=== PATIENT | male | born 1950 | race American Indian/Alaskan Native ===

== ENCOUNTER 2018-03-25 12:07 | Inpatient (IN) | payer MEDICARE ==
[2018-03-25] MEDS ORDERED: ANCEF/STERILE WATER 2 GM/20 ML 2 GM/20 ML SYRINGE IV ONE (17:23)
[2018-03-25] MEDS ORDERED: HEPARIN/NS 5000 UNIT/500ML(CATH LAB) 500 ML IR ONE (17:23)
[2018-03-25] MEDS ORDERED: XYLOCAINE 2% INFILTRATI ONE ×2 (17:23→18:01)
[2018-03-25] MEDS ORDERED: HEPARIN 10,000 UNITS/10 ML ONE (17:23)
--- NOTE | 2018-03-25 17:27 | Short Stay Summary ---
Short Stay Documentation Date of service: 03/25/18 Narrative H&P: 67 year old male with ESRD and thrombosed left AVG s/p attempt at an access center where they failed at thrombosed and also failed to place a method of dialysis for the patient. He presented to [facility] and was set up for permcath placement, but K 6.8 and patient will need to be admitted. - History Principal diagnosis: AVG malfunction, Hyperkalemia Past Medical History: dialysis Past Surgical History: Other (AV access creation) - Allergies and Medications Current Medications: Allergies No Known Allergies Allergy (Unverified 03/25/18 12:08) Home Medications Medication Instructions Recorded Confirmed Last Taken Type Aspirin EC [Aspirin Enteric Coated 81 mg PO DAILY 03/25/18 03/25/18 03/24/18 History TAB] 81mg Calcium Carbonate [Tums] 200 mg PO PRN 03/25/18 03/25/18 03/24/18 History - Physical exam General appearance: no acute distress Lungs: Normal air movement - Brief post op/procedure progress note Date of procedure: 03/25/18 Pre-op diagnosis: ESRD with AVG malfunction Post-op diagnosis: same Procedure: Permcath placement Anesthesia: local (w/ conscious sedation) Surgeon: ROSE DENIS Estimated blood loss: minimal Condition: stable - Hospital course Hospital course: K 6.8. Will need dialysis. PC placed for dialysis. Contacted Dr. Schaefer since patient's pharmacy operations manager is Dr. Ching and does not come to [facility]. Will need to have dialysis due to hyperkalemia. Ordered vein mapping. FU as outpatient. - Disposition Condition at discharge: Stable Disposition: [id number]-TRM GEN HOSP IP - Discharge Diagnoses (1) Thrombosis of arteriovenous graft Status: Acute (2) ESRD (end stage renal disease) on dialysis Status: Acute (3) Hyperkalemia Status: Acute Short Stay Discharge Plan Follow up with: PETROS OLIVA MD [Primary Care Provider] - 7 Days
[2018-03-25] MEDS ORDERED: NACL 0.9% 500 ML 500 ML ONE (17:40)
--- NOTE | 2018-03-25 17:46 | Operative Report ---
Operative Report Operative Report: EXAM: 1. Ultrasound-guided puncture of the right internal jugular vein 2. Fluoroscopic-guided placement of a right internal jugular tunneled cuffed hemodialysis catheter. DATE: 03/25/18 INDICATION: End-stage renal disease with thrombosed AV graft status post attempt at outside access Center which was unsuccessful and no catheter was placed. Patient was not provided a dialysis access. Patient was then sent for evaluation with nonsalvagable access and hyperkalemia and needs dialysis access. MEDICATIONS: Please see nursing report for full details. DEVICES: 23 cm tip to cuff 15 Fr dual lumen hemodialysis catheter PLATE PAINTER: ROSE DENIS MD CONTRAST: None PROCEDURE: The risks, benefits, and alternatives were discussed and informed consent was obtained. The patient was transported to the angiography suite in satisfactory/stable condition and was transported onto the angiography table. The patient's right internal jugular vein was assessed with ultrasound and determined to be patent prior to procedure. The patient was prepped and draped in a sterile fashion. The puncture site was anesthetized. Under sonographic guidance, the right internal jugular vein was punctured with a 21-gauge micropuncture needle and a 0.018 inch wire was advanced into the inferior vena cava. The micropuncture needle was exchanged for a transitional dilator and the wire was retracted into the right atrium to nichelle intravascular distance. The wire and inner dilator were removed. 0.035 inch wire was advanced through the transitional dilator into the inferior vena cava. A suitable exit site was identified on the patient's chest inferior and lateral to the venotomy. The site was anesthetized with local anesthetic and the track was anesthetized. Dermatotomy was made. The PermCath was attached to the tunneling device and tunneled between the dermatotomy to the venotomy. Over the 0.035 inch wire, serial dilatation was performed with ultimate placement of a peel-away sheath. The catheter was advanced through the peel- away sheath after the wire was removed and positioned centrally under fluorosco pic guidance. The peel-away sheath was removed. 3-0 Vicryl suture was used to close the venotomy and Dermabond was then applied. 2-0 Ethilon suture was used to secure the catheter at the dermatotomy. The catheter was charged with heparin 1000 units/mL space. Biopatch and sterile dressing applied. The patient was transferred from the angiography suite back to the floor in stable condition. FINDINGS: 1. Excellent flow was obtained through the dialysis catheter with 20 mL syringes. 2. The catheter tip is in the right atrium. IMPRESSION: 1. Successful ultrasound and fluoroscopically guided placement of a right internal jugular tunneled cuffed hemodialysis catheter.
[2018-03-25] MEDS: SUBLIMAZE ONE ×2 (17:54→18:00)
[2018-03-25] MEDS: VERSED ONE ×2 (17:54→18:00)
[2018-03-25] MEDS ORDERED: ZOFRAN ONE (18:34)
[2018-03-25] MEDS ORDERED: DILAUDID IV PRN (18:40)
[2018-03-25] MEDS ORDERED: MORPHINE IV PRN (18:40)
[2018-03-25] MEDS ORDERED: TYLENOL PO PRN (18:40)
[2018-03-25] MEDS ORDERED: SODIUM CHLORIDE FLUSH SYRINGE 10 ML IV PRN (18:40)
[2018-03-25] MEDS ORDERED: ZOFRAN IV PRN (18:40)
[2018-03-25] MEDS ORDERED: CALCIUM GLUCONATE 2,000 MG in NACL 0.9% 100 ML IV ONE (19:00)
[2018-03-25] MEDS ORDERED: DDAVP 20 MCG in NACL 0.9% 50 ML IV ONE (19:00)
[2018-03-25] MEDS ORDERED: KIONEX PO ONE (21:00)
[2018-03-25 21:25] LABS: Basophils # (Auto) 0.1 K/mm3 (0.0-0.1); Basophils % (Auto) 0.7 % (0.0-1.8); Eosinophils # (Auto) 0.1 K/mm3 (0.0-0.4); Hematocrit 37.2 % (35.5-45.6); Hemoglobin 12.4 gm/dl (11.8-15.2); Lymphocytes % (Auto) 8.1 % (13.4-35.0); Mean Corpuscular HGB Conc 33 % (32-34); Mean Corpuscular Volume 99 fl (84-94); Monocytes # (Auto) 0.7 K/mm3 (0.0-0.8); Monocytes % (Auto) 5.7 % (0.0-7.3); Platelet Count 215 K/mm3 (140-440); Red Blood Count 3.78 M/mm3 (3.65-5.03)
[2018-03-25 21:40] LABS: Calcium 8.1 mg/dL (8.4-10.2)
[2018-03-25 21:49] LABS: Hepatitis B Surface Antigen Non-Reactive (Negative); Hepatitis C Virus Antibody Non-Reactive (NonReactive)
[2018-03-25] MEDS ORDERED: NACL 0.9 (PRIMING MACHINE ONLY DIALYSIS) MC ONE (23:35)
[2018-03-25] MEDS: HEPARIN SUB-Q SCH (23:51)
[2018-03-25] MEDS: PEPCID PO SCH (23:51)
[2018-03-25] MEDS: SODIUM CHLORIDE FLUSH SYRINGE 10 ML IV SCH (23:51)
[2018-03-26 05:56] LABS: Basophils # (Auto) 0.2 K/mm3 (0.0-0.1); Basophils % (Auto) 2.3 % (0.0-1.8); Eosinophils # (Auto) 0.2 K/mm3 (0.0-0.4); Eosinophils % (Auto) 1.8 % (0.0-4.3); Hematocrit 31.5 % (35.5-45.6); Hemoglobin 10.7 gm/dl (11.8-15.2); Lymphocytes # (Auto) 1.4 K/mm3 (1.2-5.4); Lymphocytes % (Auto) 16.8 % (13.4-35.0); Mean Corpuscular HGB Conc 34 % (32-34); Mean Corpuscular Volume 97 fl (84-94); Monocytes # (Auto) 0.8 K/mm3 (0.0-0.8); Platelet Count 196 K/mm3 (140-440); Red Blood Count 3.26 M/mm3 (3.65-5.03); Red Cell Distribution Width 15.4 % (13.2-15.2)
[2018-03-26 07:21] LABS: Albumin 3.8 g/dL (3.9-5); BUN/Creatinine Ratio 4; Blood Urea Nitrogen 29 mg/dL (9-20); Calcium 8.1 mg/dL (8.4-10.2); Hemolysis Index 9
--- NOTE | 2018-03-26 07:31 | Event Note ---
Date: 03/25/18 See H/p in reports ESRD on HD Hyperkalemia s/p Flores
[2018-03-26 07:34] LABS: Alanine Aminotransferase < 5 units/L (7-56)
--- NOTE | 2018-03-26 09:23 | History and Physical Report ---
CHIEF COMPLAINT: No hemodialysis access. HISTORY OF PRESENT ILLNESS: The patient is being admitted for high potassium levels. The patient was sent for Vas-Cath placement. The patient has a thrombosed AV graft and could not be corrected in outpatient surgery. The patient was sent here without a Vas-Cath, for placement of a Vas-Cath and correction of the AV graft, if possible. No dialysis done today. Some shortness of breath is present. PAST MEDICAL HISTORY: Past medical history is significant for end-stage renal disease with AV malfunction and possible hypertension. PAST SURGICAL HISTORY: AV graft placement. SOCIAL HISTORY: He does not smoke. No alcohol, no recreational drugs. FAMILY HISTORY: Family history is significant for hypertension. REVIEW OF SYSTEMS: Review of systems is significant for slight shortness of breath present. No chest pain. Otherwise, review of systems is negative. PHYSICAL EXAMINATION: GENERAL: On examination, elderly male, cooperative during the examination. VITAL SIGNS: Blood pressure 154/81, temperature is 97.6, pulse 66, respirations are 12. HEENT: Unremarkable. Pupils are equal and reactive. NECK: Supple, no lymphadenopathy, no thyromegaly. LUNGS: Clear to auscultation and percussion. Good air entry. CARDIOVASCULAR: S1, S2 heard. No gallop, no murmur, no rub. Apical impulse in left fifth intercostal space and midclavicular line. ABDOMEN: Soft and benign. No hepatosplenomegaly. No guarding, no rigidity. Hernial orifices are normal. EXTREMITIES: Good pedal pulses. No pedal edema. CENTRAL NERVOUS SYSTEM: Alert and oriented x 4, nonfocal examination. SKIN: Normal. LABORATORY DATA: Potassium is 6.8, hemoglobin 11.8, BUN and creatinine is 12.4 and 37.4, platelet count is 215,000. Sodium is 138, potassium is 4.2, chloride is 94, bicarbonate is 26, BUN and creatinine 35 and 7.0. Glucose is 152, calcium is 8.1. Hepatitis profile is nonreactive. ASSESSMENT AND PLAN: 1. Status post Vas-Cath placement. The patient can be taken for dialysis. 2. Hyperkalemia. Calcium gluconate and Kayexalate given. Hemodialysis should be corrected further. 3. Hypertension. The patient's blood pressures may be slightly elevated at times, may not need any antihypertensives. 4. Deep venous thrombosis prophylaxis. Heparin 5000 q. 12 hours. JOB# [id number] SHERLY/JOHN
[2018-03-26] MEDS: SODIUM CHLORIDE FLUSH SYRINGE 10 ML IV SCH (10:16)
[2018-03-26] MEDS: PEPCID PO SCH (10:16)
[2018-03-26] MEDS: HEPARIN SUB-Q SCH (10:17)
[2018-03-26] MEDS ORDERED: NACL 0.9% 100 ML IV PRN (11:42)
--- NOTE | 2018-03-26 12:38 | Discharge Summary ---
Providers - Providers Date of Admission: 03/25/18 18:40 Date of discharge: 03/26/18 Attending physician: TATO MARTIN 03/25/18 18:43 Consult to Physician [CONS] Routine Comment: SPOKE WITH DR KENT Consulting Provider: GILBERT CORTEZ Physician Instructions: Reason For Exam: ESRd 03/25/18 18:46 Consult to Physician [CONS] Routine Comment: Consulting Provider: GILBERT CORTEZ Physician Instructions: Reason For Exam: HYPERKALEMIA 6.8 Primary care physician: PETROS OLIVA MD Hospitalization Condition: Stable Hospital course: Pateint has malfunctioning AVG,Had Vas cath inserted yesterday.He sees Dr Juan Arteaga in [place] for ESRD.Patient recieving HD today.Had Hyperkalemia which was corrected.Patient to be discharged after HD. Disposition: - TO HOME OR SELFCARE - Discharge Diagnoses (1) ESRD (end stage renal disease) on dialysis Status: Acute Comment: Cont HD TTS schedule (2) Hyperkalemia Status: Acute Comment: Corrected (3) Thrombosis of arteriovenous graft Status: Acute Qualifiers: Encounter type: initial encounter Qualified Code(s): T82.868A - Thrombosis due to vascular prosthetic devices, implants and grafts, initial encounter Comment: To correct as outpatient Core Measure Documentation - Palliative Care Palliative Care/ Comfort Measures: Not Applicable - Core Measures Any of the following diagnoses?: none Exam - Constitutional Vitals: Temp Pulse Resp BP Pulse Ox 97.9 F 66 20 151/73 98 03/26/18 11:07 03/26/18 11:07 03/26/18 11:07 03/26/18 11:07 03/26/18 11:07 General appearance: Present: no acute distress, well-nourished - EENT Eyes: Present: PERRL ENT: hearing intact, clear oral mucosa - Neck Neck: Present: supple, normal ROM - Respiratory Respiratory effort: normal Respiratory: bilateral: CTA - Cardiovascular Heart rate: 78 Rhythm: regular Heart Sounds: Present: S1 & S2. Absent: rub, click - Extremities Extremities: pulses symmetrical, No edema Peripheral Pulses: within normal limits - Abdominal General gastrointestinal: Present: soft, non-tender, non-distended, normal bowel sounds Male genitourinary: Present: normal - Rectal Rectal Exam: deferred - Integumentary Integumentary: Present: clear, warm, dry - Musculoskeletal Musculoskeletal: gait normal, strength equal bilaterally - Psychiatric Psychiatric: appropriate mood/affect, intact judgment & insight - Neurologic Neurologic: CNII-XII intact, moves all extremities - Allied Health Allied health notes reviewed: nursing, case management Plan Activity: no restrictions Diet: renal Follow up with: PETROS OLIVA MD [Primary Care Provider] - 7 Days
--- NOTE | 2018-03-26 13:17 | Consultation ---
History of Present Illness - Reason for Consult Consult date: 03/26/18 end stage renal disease, hyperkalemia Requesting physician: TATO MARTIN - History of Present Illness This is a 67 y/o male with PMH of ESRD on HD and anemia who presented to [facility] yesterday with malfunctioning left AVG and inability to undergo outpatient HD. Dr Bustamante (IR - vascular surgery) consulted, pt with thrombosed AV graft s/p unsuccessful attempt at outside access center. Dr Bustamante placed Right IJ Perm Catheter and had HD treatment last night. We were consulted to evaluate this pt who has ESRD. This pt is followed by Dr Chandler Martinez (Mainframe Programmer Analyst). Pt states he undergoes outpatient every TTS. Past History Past Medical History: dialysis, ESRD, hypertension Past Surgical History: Other (AV access creation) Medications and Allergies Allergies Allergy/AdvReac Type Severity Reaction Status Date / Time No Known Allergies Allergy Unverified 03/25/18 12:08 Home Medications Medication Instructions Recorded Confirmed Last Taken Type Aspirin EC [Aspirin Enteric Coated 81 mg PO DAILY 03/25/18 03/25/18 03/24/18 History TAB] 81mg Calcium Carbonate [Tums] 200 mg PO PRN 03/25/18 03/25/18 03/24/18 History Active Meds: Active Medications Acetaminophen (Tylenol) 650 mg PO Q4H PRN PRN Reason: Pain MILD(1-3)/Fever >100.5/MONACO Famotidine (Pepcid) 10 mg PO BID [facility] Last Admin: 03/26/18 10:16 Dose: 10 mg Documented by: Heparin Sodium (Porcine) (Heparin) 5,000 unit SUB-Q Q12HR [facility] Last Admin: 03/26/18 10:17 Dose: 5,000 unit Documented by: Hydromorphone HCl (Dilaudid) 0.5 mg IV Q3H PRN PRN Reason: Pain , Severe (7-10) Sodium Chloride (Nacl 0.9%) 100 mls @ 999 mls/hr IV CHANDAN PRN PRN Reason: Hypotension Morphine Sulfate (Morphine) 2 mg IV Q4H PRN PRN Reason: Pain, Moderate (4-6) Ondansetron HCl (Zofran) 4 mg IV Q8H PRN PRN Reason: Nausea And Vomiting Sodium Chloride (Sodium Chloride Flush Syringe 10 Ml) 10 ml IV BID [facility] Last Admin: 03/26/18 10:16 Dose: 10 ml Documented by: Sodium Chloride (Sodium Chloride Flush Syringe 10 Ml) 10 ml IV PRN PRN PRN Reason: LINE FLUSH Review of Systems Constitutional: fatigue Cardiovascular: no chest pain, no shortness of breath, no dyspnea on exertion Respiratory: no shortness of breath, no dyspnea on exertion Gastrointestinal: nausea, no abdominal pain, no vomiting, no diarrhea, no constipation, no hematemesis Genitourinary Male: no dysuria, no hematuria Integumentary: no wounds Neurological: no weakness, no numbness, no tingling Psychiatric: no anxiety, no depression Exam - Vital Signs Vital signs: Vital Signs Temp Pulse Resp BP 97.8 F 57 L 20 183/79 03/25/18 14:11 03/25/18 14:11 03/25/18 14:11 03/25/18 14:11 - General Appearance General appearance: well-developed EENT: ATNC Neck: Present: neck supple Respiratory: Decreased Breath Sounds Heart: regular, S1S2, other (ACCESS: Right IJ Perm Catheter; left AVG - no thrill or bruit noted) Gastrointestinal: Present: normoactive bowel sounds. Absent: tenderness Integumentary: warm and dry Neurologic: alert and oriented x3 Musculoskeletal: Present: other (no edema to BLE) Psychiatric: cooperative Results - Lab Results 03/26/18 05:08 03/26/18 05:08 Most recent lab results Calcium 8.1 mg/dL (8.4-10.2) L 03/26/18 05:08 Assessment and Plan Malfunctioning Left AVG: - Dr Bustamante consulted, s/p Right IJ Perm Catheter placement - Pt will need vascular surgery evaluation upon discharge for custodial access management ESRD on HD: - S/p HD last night for UF and clearance, UF removed 2 liters - Additional HD treatment today for gentle UF and clearance - Assess need for HD on daily basis - Ok for pt to be d/c home today from nephrology standpoint after HD if medically cleared. Pt will need to follow up with his staff physical therapist Dr Martinez and outpatient dialysis center as scheduled (TTS) - Renally dose meds - Renal plan d/w Dr Mishra Hyperkalemia: - Secondary to inability to undergo HD due to malfunctioning AVG - Improved with HD - HD again today - Low potassium diet Anemia: - Epogen dosing as needed
[2018-03-26 17:01] VITALS: BP 118/54
== END 2018-03-26 17:18 | disposition home or self-care (01) | DRG 286 ==
LOC: CATHLABREC 12:07 → 4A 18:40
PROVIDERS: ADMIT Internal Medicine; ATTEND Internal Medicine
PROC: 0JH63XZ Insertion of Tunneled Vascular Access Device into Chest Subcutaneous Tissue and Fascia, Percutaneous Approach (ICD-10-PCS; principal; 2018-03-25)
PROC: B2141ZZ Fluoroscopy of Right Heart using Low Osmolar Contrast (ICD-10-PCS; 2018-03-25)
PROC: 02H633Z Insertion of Infusion Device into Right Atrium, Percutaneous Approach (ICD-10-PCS; 2018-03-25)
PROC: B244ZZZ Ultrasonography of Right Heart (ICD-10-PCS; 2018-03-25)
PROC: 5A1D70Z Performance of Urinary Filtration, Intermittent, Less than 6 Hours Per Day (ICD-10-PCS; 2018-03-25)
PROC: 5A1D70Z Performance of Urinary Filtration, Intermittent, Less than 6 Hours Per Day (ICD-10-PCS; 2018-03-26)
DX: T82.868A Thrombosis due to vascular prosthetic devices, implants and grafts, initial encounter (principal); N18.6 End stage renal disease; I12.0 Hypertensive chronic kidney disease with stage 5 chronic kidney disease or end stage renal disease; D64.9 Anemia, unspecified; E87.5 Hyperkalemia; Y83.2 Surgical operation with anastomosis, bypass or graft as the cause of abnormal reaction of the patient, or of later complication, without mention of misadventure at the time of the procedure; Z99.2 Dependence on renal dialysis; Z79.899 Other long term (current) drug therapy; Z79.82 Long term (current) use of aspirin; Y92.098 Other place in other non-institutional residence as the place of occurrence of the external cause
CPT/HCPCS: 36415; 36558; 77001; 80048; 80053; 80074; 84132; 85025; 96365; G0378; C1750; C1769; J0610; J0690; J1644; J2250; J2405; J2597; J3010; J7030; J7040

== ENCOUNTER 2018-04-29 08:00 | Inpatient (IN) | payer MEDICARE ==
[~2018-04-29 08:00] MED LIST: ANCEF/STERILE WATER 2 GM/20 ML 2 GM/20 ML SYRINGE IV NR
[2018-04-29] MEDS: NACL 0.9% 1000 ML 1,000 ML IV SCH (08:40)
[2018-04-29] MEDS ORDERED: ZOFRAN ONE (10:05)
[2018-04-29] MEDS ORDERED: XYLOCAINE CARDIAC IV ONE (10:05)
[2018-04-29] MEDS ORDERED: SUBLIMAZE ONE (10:05)
[2018-04-29] MEDS ORDERED: DIPRIVAN 10 MG/ML IV ONE (10:05)
[2018-04-29] MEDS ORDERED: GELFOAM TP ONE (10:18)
[2018-04-29] MEDS ORDERED: MARCAINE-EPI 0.5%-1:200,000 INFILTRATI ONE (10:18)
[2018-04-29] MEDS ORDERED: NACL 0.9% 250ML 0 ML ONE (10:18)
[2018-04-29] MEDS ORDERED: HEPARIN 10,000 UNITS/10 ML ONE (10:18)
[2018-04-29] MEDS ORDERED: THROMBIN (BOVINE) TP ONE (10:19)
[2018-04-29] MEDS ORDERED: NITROGLYCERIN SYRINGE 0 ML ONE (10:19)
[2018-04-29 14:28] LABS: Basophils # (Auto) 0.2 K/mm3 (0.0-0.1); Basophils % (Auto) 1.7 % (0.0-1.8); Eosinophils # (Auto) 0.3 K/mm3 (0.0-0.4); Eosinophils % (Auto) 2.9 % (0.0-4.3); Hematocrit 37.9 % (35.5-45.6); Hemoglobin 12.6 gm/dl (11.8-15.2); Lymphocytes # (Auto) 2.1 K/mm3 (1.2-5.4); Mean Corpuscular HGB Conc 33 % (32-34); Mean Corpuscular Volume 98 fl (84-94); Monocytes # (Auto) 0.7 K/mm3 (0.0-0.8); Monocytes % (Auto) 7.2 % (0.0-7.3); Platelet Count 212 K/mm3 (140-440); Red Blood Count 3.88 M/mm3 (3.65-5.03); Red Cell Distribution Width 15.5 % (13.2-15.2)
[2018-04-29 15:05] LABS: Albumin 4.6 g/dL (3.9-5); Calcium 8.4 mg/dL (8.4-10.2)
[2018-04-29] MEDS ORDERED: TYLENOL PO PRN (15:39)
[2018-04-29] MEDS ORDERED: SODIUM CHLORIDE FLUSH SYRINGE 10 ML IV PRN (15:39)
[2018-04-29] MEDS ORDERED: ZOFRAN IV PRN (15:39)
[2018-04-29] MEDS ORDERED: CALCIUM GLUCONATE 2,000 MG in NACL 0.9% 100 ML IV ONE (15:41)
[2018-04-29] MEDS ORDERED: KIONEX PO ONE (15:41)
[2018-04-29] MEDS ORDERED: NACL 0.9% 100 ML IV PRN (15:41)
--- NOTE | 2018-04-29 15:46 | History and Physical Report ---
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) Family history: hypertension Medications and Allergies Allergies Allergy/AdvReac Type Severity Reaction Status Date / Time No Known Allergies Allergy Unverified 04/27/18 18:09 Home Medications Medication Instructions Recorded Confirmed Last Taken Type No Known Home Medications [No 04/27/18 04/27/18 Unknown History Reported Home Medications] Active Meds: Active Medications Acetaminophen (Tylenol) 650 mg PO Q4H PRN PRN Reason: Pain MILD(1-3)/Fever >100.5/MONACO Albuterol (Proventil) 2.5 mg IH TIDRT LIS Stop: 04/30/18 19:59 Dextrose (D50w (25gm) Syringe) 25 ml IV Q6H LIS Stop: 04/29/18 22:01 Cefazolin Sodium (Ancef/Sterile Water 2 Gm/20 Ml) 2 gm in 20 mls @ 80 mls/hr IV PREOP NR; Protocol Stop: 04/29/18 23:59 Sodium Chloride (Nacl 0.9% 1000 Ml) 1,000 mls @ 42 mls/hr IV DIRECT LIS Last Admin: 04/29/18 08:40 Dose: 42 mls/hr Documented by: Sodium Chloride (Nacl 0.9%) 100 mls @ 999 mls/hr IV CHANDAN PRN PRN Reason: Hypotension Calcium Gluconate 2,000 mg/ (Sodium Chloride) 120 mls @ 660 mls/hr IV ONCE ONE Stop: 04/29/18 15:51 Insulin Human Regular (Humulin R) 5 units SUB-Q Q6H LIS Stop: 04/29/18 22:01 Ondansetron HCl (Zofran) 4 mg IV Q8H PRN PRN Reason: Nausea And Vomiting Sodium Chloride (Sodium Chloride Flush Syringe 10 Ml) 10 ml IV BID LIS Sodium Chloride (Sodium Chloride Flush Syringe 10 Ml) 10 ml IV PRN PRN PRN Reason: LINE FLUSH Sodium Polystyrene Sulfonate (Kionex) 30 gm PO ONCE ONE Stop: 04/29/18 15:42 Review of Systems All systems: negative Constitutional: no fatigue Ears, nose, mouth and throat: no ear pain Cardiovascular: no chest pain Respiratory: no cough Gastrointestinal: no abdominal pain Genitourinary Male: no dysuria Rectal: no pain Musculoskeletal: no neck stiffness Integumentary: no rash Neurological: no head injury Psychiatric: no anxiety Endocrine: no cold intolerance Hematologic/Lymphatic: no easy bruising Allergic/Immunologic: no urticaria Exam - Constitutional Vitals: Temp Pulse Resp BP Pulse Ox 98.2 F 61 20 150/66 97 04/29/18 12:48 04/29/18 12:48 04/29/18 12:48 04/29/18 12:48 04/29/18 12:48 General appearance: Present: no acute distress, well-nourished - EENT Eyes: Present: PERRL ENT: hearing intact, clear oral mucosa - Neck Neck: Present: supple, normal ROM - Respiratory Respiratory effort: normal Respiratory: bilateral: CTA - Cardiovascular Heart Sounds: Present: S1 & S2. Absent: rub, click - Extremities Extremities: pulses symmetrical, No edema Peripheral Pulses: within normal limits - Abdominal General gastrointestinal: Present: soft, non-tender, non-distended, normal bowel sounds Male genitourinary: Present: normal - Integumentary Integumentary: Present: clear, warm, dry - Musculoskeletal Musculoskeletal: gait normal, strength equal bilaterally - Psychiatric Psychiatric: appropriate mood/affect, intact judgment & insight - Neurologic Neurologic: CNII-XII intact, moves all extremities Results - Labs CBC & Chem 7: 04/29/18 14:05 05/02/18 03:32 Labs: Laboratory Last Values WBC 9.7 K/mm3 (4.5-11.0) 04/29/18 14:05 RBC 3.88 M/mm3 (3.65-5.03) 04/29/18 14:05 Hgb 12.6 gm/dl (11.8-15.2) 04/29/18 14:05 POC Hgb 11.2 (12-17) L 04/29/18 10:04 Hct 37.9 % (35.5-45.6) 04/29/18 14:05 POC Hct 33 (38-51) L 04/29/18 10:04 MCV 98 fl (84-94) H 04/29/18 14:05 MCH 33 pg (28-32) H 04/29/18 14:05 MCHC 33 % (32-34) 04/29/18 14:05 RDW 15.5 % (13.2-15.2) H 04/29/18 14:05 Plt Count 212 K/mm3 (140-440) 04/29/18 14:05 Lymph % (Auto) 22.0 % (13.4-35.0) 04/29/18 14:05 Lares % (Auto) 7.2 % (0.0-7.3) 04/29/18 14:05 Eos % (Auto) 2.9 % (0.0-4.3) 04/29/18 14:05 Baso % (Auto) 1.7 % (0.0-1.8) 04/29/18 14:05 Lymph # 2.1 K/mm3 (1.2-5.4) 04/29/18 14:05 Lares # 0.7 K/mm3 (0.0-0.8) 04/29/18 14:05 Eos # 0.3 K/mm3 (0.0-0.4) 04/29/18 14:05 Baso # 0.2 K/mm3 (0.0-0.1) H 04/29/18 14:05 Seg Neutrophils % 66.2 % (40.0-70.0) 04/29/18 14:05 Seg Neutrophils # 6.4 K/mm3 (1.8-7.7) 04/29/18 14:05 POC Sodium 137 mmol/L (138-146) L 04/29/18 10:04 POC Potassium 6.0 (3.5-4.9) H 04/29/18 10:04 POC Chloride 102 (98-109) 04/29/18 10:04 Sodium 139 mmol/L (137-145) 04/29/18 14:05 Potassium 6.2 mmol/L (3.6-5.0) H* 04/29/18 14:05 Chloride 95.1 mmol/L (98-107) L 04/29/18 14:05 Carbon Dioxide 24 mmol/L (22-30) 04/29/18 14:05 Anion Gap 26 mmol/L 04/29/18 14:05 POC BUN 48 mg/dl (8-26) H 04/29/18 10:04 BUN 52 mg/dL (9-20) H 04/29/18 14:05 Creatinine 9.3 mg/dL (0.8-1.5) H 04/29/18 14:05 Estimated GFR 7 ml/min 04/29/18 14:05 BUN/Creatinine Ratio 6 % 04/29/18 14:05 Glucose 85 mg/dL (75-100) 04/29/18 14:05 POC Glucose 96 (70-105) 04/29/18 10:04 Calcium 8.4 mg/dL (8.4-10.2) 04/29/18 14:05 Total Bilirubin 0.30 mg/dL (0.1-1.2) 04/29/18 14:05 AST 12 units/L (5-40) 04/29/18 14:05 ALT 10 units/L (7-56) 04/29/18 14:05 Alkaline Phosphatase 67 units/L (35-129) 04/29/18 14:05 Total Protein 7.2 g/dL (6.3-8.2) 04/29/18 14:05 Albumin 4.6 g/dL (3.9-5) 04/29/18 14:05 Albumin/Globulin Ratio 1.8 % 04/29/18 14:05 TSH 1.810 mlU/mL (0.270-4.200) 04/29/18 14:05 Assessment and Plan Assessment and plan: 67M with pmh of ESRD who was in outpatient preop for declotting of avg, he was found to have elevated K prompting admission to hospital Diagnosis AVG malfunction hyperkalemia ESRD -vasc sx consult to declot avg -medically rx hyperkalemia in meantime -renal consult for continued HD Dvt ppx; chemical VTE prophylaxis?: Chemical
[2018-04-29] MEDS ORDERED: HumuLIN R SUB-Q SCH (16:00)
[2018-04-29] MEDS ORDERED: D50W (25GM) Syringe IV SCH (16:00)
--- NOTE | 2018-04-29 16:31 | Event Note ---
Date: 04/29/18 Patient was here today for an elective placement of a left arm AV graft. The procedure was canceled because of hyperkalemia. Patient does not require surgery while an inpatient. He can be discharged after dialysis and follow up as an outpatient.
--- NOTE | 2018-04-29 18:43 | Consultation ---
History of Present Illness - Reason for Consult Consult date: 04/29/18 end stage renal disease, hyperkalemia Requesting physician: BRONSON BARNETT - History of Present Illness 67 year old with history of esrd admitted for hyperkalemia after planned vascular procedure Past History Past Medical History: anemia, dialysis, hypertension Past Surgical History: Other (dialysis access) Social history: full code. denies: IV drug use Family history: hypertension Medications and Allergies Allergies Allergy/AdvReac Type Severity Reaction Status Date / Time No Known Allergies Allergy Unverified 04/27/18 18:09 Home Medications Medication Instructions Recorded Confirmed Last Taken Type No Known Home Medications [No 04/27/18 04/27/18 Unknown History Reported Home Medications] Active Meds: Active Medications Acetaminophen (Tylenol) 650 mg PO Q4H PRN PRN Reason: Pain MILD(1-3)/Fever >100.5/MONACO Albuterol (Proventil) 2.5 mg IH TIDRT LIS Stop: 04/30/18 19:59 Heparin Sodium (Porcine) (Heparin) 5,000 unit SUB-Q Q8HR LIS Cefazolin Sodium (Ancef/Sterile Water 2 Gm/20 Ml) 2 gm in 20 mls @ 80 mls/hr IV PREOP NR; Protocol Stop: 04/29/18 23:59 Sodium Chloride (Nacl 0.9% 1000 Ml) 1,000 mls @ 42 mls/hr IV DIRECT LIS Last Admin: 04/29/18 08:40 Dose: 42 mls/hr Documented by: Sodium Chloride (Nacl 0.9%) 100 mls @ 999 mls/hr IV CHANDAN PRN PRN Reason: Hypotension Ondansetron HCl (Zofran) 4 mg IV Q8H PRN PRN Reason: Nausea And Vomiting Sodium Chloride (Sodium Chloride Flush Syringe 10 Ml) 10 ml IV BID LIS Sodium Chloride (Sodium Chloride Flush Syringe 10 Ml) 10 ml IV PRN PRN PRN Reason: LINE FLUSH Review of Systems All systems: negative Constitutional: fatigue, weakness, malaise Exam - Vital Signs Vital signs: Vital Signs Temp Pulse Resp BP Pulse Ox 98.7 F 64 18 123/63 100 04/29/18 08:50 04/29/18 08:50 04/29/18 08:50 04/29/18 08:50 04/29/18 08:50 - General Appearance General appearance: well-developed, well-nourished, appears stated age EENT: PERRL, mucous membranes moist Neck: Present: neck supple, trachea midline. Absent: JVD/HJR, Masses Respiratory: Clear to Ascultation Heart: regular, normal heart rate, S1S2, no murmurs Gastrointestinal: Present: normal. Absent: tenderness, distended, masses, guarding Integumentary: no rash, warm and dry Neurologic: no focal deficit, alert and oriented x3, gait normal, strength 5/5 Musculoskeletal: Absent: deformities, joint swelling Psychiatric: mood/affect appropriate Results - Lab Results 04/29/18 14:05 04/29/18 14:05 Most recent lab results Calcium 8.4 mg/dL (8.4-10.2) 04/29/18 14:05 Assessment and Plan Impression: * ESRD * Hyperkalemia * htn * av access malfunction PLan: * hd today and in for k and volume control * strict i/os * uf as tolerated * daily lytes * renal diet * avoid nephrotoxins
[2018-04-29] MEDS ORDERED: PROVENTIL IH SCH (20:00)
[2018-04-29] MEDS: HEPARIN SUB-Q SCH (22:08)
[2018-04-29] MEDS: SODIUM CHLORIDE FLUSH SYRINGE 10 ML IV SCH (22:09)
[2018-04-30 06:38] LABS: Calcium 8.3 mg/dL (8.4-10.2)
[2018-04-30 06:43] LABS: Calcium 8.3 mg/dL (8.4-10.2)
[2018-04-30] MEDS: HEPARIN SUB-Q SCH ×2 (08:52→16:45)
[2018-04-30] MEDS: NACL 0.9% 1000 ML 1,000 ML IV SCH (08:52)
--- NOTE | 2018-04-30 09:11 | Progress Note ---
Assessment and Plan Impression: * ESRD * Hyperkalemia * htn * av access malfunction PLan: * hd today and in for k and volume control * strict i/os * uf as tolerated * daily lytes * renal diet * avoid nephrotoxins Subjective Date of service: 04/30/18 Principal diagnosis: hyperkalemia Interval history: resting in bed today Objective - Exam Narrative Exam: General appearance: well-developed, well-nourished, appears stated age EENT: PERRL, mucous membranes moist Neck: Present: neck supple, trachea midline. Absent: JVD/HJR, Masses Respiratory: Clear to Ascultation Heart: regular, normal heart rate, S1S2, no murmurs Gastrointestinal: Present: normal. Absent: tenderness, distended, masses, guarding Integumentary: no rash, warm and dry Neurologic: no focal deficit, alert and oriented x3, gait normal, strength 5/5 Musculoskeletal: Absent: deformities, joint swelling Psychiatric: mood/affect appropriate - Vital Signs Vital signs: Vital Signs - 12hr 04/29/18 04/29/18 04/29/18 21:15 21:20 22:00 Temperature 98.0 F Pulse Rate 68 70 Respiratory 18 18 Rate Respiratory 18 Rate [Right Generalized] Blood Pressure 125/70 130/70 O2 Sat by Pulse Oximetry 04/30/18 04/30/18 04/30/18 02:00 02:33 07:42 Temperature 82 F L 98.6 F 98.2 F Pulse Rate 72 Respiratory 20 20 Rate Respiratory Rate [Right Generalized] Blood Pressure 138/71 134/70 O2 Sat by Pulse 95 98 Oximetry 04/30/18 08:12 Temperature Pulse Rate 72 Respiratory Rate Respiratory Rate [Right Generalized] Blood Pressure O2 Sat by Pulse Oximetry - Lab 04/29/18 14:05 04/30/18 05:46 Most recent lab results Calcium 8.3 mg/dL (8.4-10.2) L 04/30/18 05:46 Medications & Allergies - Medications Allergies/Adverse Reactions: Allergies No Known Allergies Allergy (Unverified 04/27/18 18:09) Home Medications: Home Medications Medication Instructions Recorded Confirmed Last Taken Type No Known Home Medications [No 04/27/18 04/27/18 Unknown History Reported Home Medications] Active Medications: Generic Name Dose Route Start Last Admin Trade Name Freq PRN Reason Stop Dose Admin Acetaminophen 650 mg 04/29/18 15:39 Tylenol PO Q4H PRN Pain MILD(1-3)/Fever >100.5/MONACO Heparin Sodium (Porcine) 5,000 unit 04/29/18 22:00 04/30/18 08:52 Heparin SUB-Q 5,000 unit Q8HR LIS Administration Sodium Chloride 1,000 mls @ 42 mls/hr 04/29/18 06:00 04/30/18 08:52 Nacl 0.9% 1000 Ml IV 42 mls/hr DIRECT LIS Administration Sodium Chloride 100 mls @ 999 mls/hr 04/29/18 15:41 Nacl 0.9% IV CHANDAN PRN Hypotension Ondansetron HCl 4 mg 04/29/18 15:39 Zofran IV Q8H PRN Nausea And Vomiting Sodium Chloride 10 ml 04/29/18 22:00 04/29/18 22:09 Sodium Chloride Flush Syringe 10 Ml IV 10 ml BID LIS Administration Sodium Chloride 10 ml 04/29/18 15:39 Sodium Chloride Flush Syringe 10 Ml IV PRN PRN LINE FLUSH
[2018-04-30] MEDS: SODIUM CHLORIDE FLUSH SYRINGE 10 ML IV SCH (10:32)
--- NOTE | 2018-04-30 12:48 | Progress Note ---
Assessment and Plan Assessment and plan: 67M with pmh of ESRD who was in outpatient preop for declotting of avg, he was found to have elevated K prompting admission to hospital Diagnosis AVG malfunction hyperkalemia ESRD -vasc sx consult to declot avg -medically rx hyperkalemia in meantime, kayexalate prn -renal consult for continued HD Dvt ppx; chemical History Interval history: Review of systems Constitutional: No fevers, no malaise, no joint pains CVS: No chest pain, no orthopnea, no dyspnea on exertion, no pedal edema GI: No abdominal pain, no diarrhea, no vomiting, no constipation Respiratory: No shortness of breath, no wheezing, no coughing Hospitalist Physical - Physical exam Narrative exam: General.: Appears well, no distress, nontoxic HEENT: Moist mucous membranes, extraocular muscles intact, no lymphadenopathy Neck: supple Cardiac: S1-S2 heard Lungs: clear to auscultation bilaterally Abdomen: soft , nontender, nondistended, bowel sounds positive Extremities: no edema clubbing or cyanosis Skin: no rash or lesions Neurologic: no gross focal deficits Psych: calm, and cooperative - Constitutional Vitals: Temp Pulse Resp BP Pulse Ox 98.2 F 72 20 134/70 98 04/30/18 07:42 04/30/18 08:12 04/30/18 07:42 04/30/18 07:42 04/30/18 07:42 Results - Labs CBC & Chem 7: 04/29/18 14:05 05/03/18 06:17 Labs: Laboratory Last Values WBC 9.7 K/mm3 (4.5-11.0) 04/29/18 14:05 RBC 3.88 M/mm3 (3.65-5.03) 04/29/18 14:05 Hgb 12.6 gm/dl (11.8-15.2) 04/29/18 14:05 POC Hgb 11.2 (12-17) L 04/29/18 10:04 Hct 37.9 % (35.5-45.6) 04/29/18 14:05 POC Hct 33 (38-51) L 04/29/18 10:04 MCV 98 fl (84-94) H 04/29/18 14:05 MCH 33 pg (28-32) H 04/29/18 14:05 MCHC 33 % (32-34) 04/29/18 14:05 RDW 15.5 % (13.2-15.2) H 04/29/18 14:05 Plt Count 212 K/mm3 (140-440) 04/29/18 14:05 Lymph % (Auto) 22.0 % (13.4-35.0) 04/29/18 14:05 [place] % (Auto) 7.2 % (0.0-7.3) 04/29/18 14:05 Eos % (Auto) 2.9 % (0.0-4.3) 04/29/18 14:05 Baso % (Auto) 1.7 % (0.0-1.8) 04/29/18 14:05 Lymph # 2.1 K/mm3 (1.2-5.4) 04/29/18 14:05 [place] # 0.7 K/mm3 (0.0-0.8) 04/29/18 14:05 Eos # 0.3 K/mm3 (0.0-0.4) 04/29/18 14:05 Baso # 0.2 K/mm3 (0.0-0.1) H 04/29/18 14:05 Seg Neutrophils % 66.2 % (40.0-70.0) 04/29/18 14:05 Seg Neutrophils # 6.4 K/mm3 (1.8-7.7) 04/29/18 14:05 POC Sodium 137 mmol/L (138-146) L 04/29/18 10:04 POC Potassium 6.0 (3.5-4.9) H 04/29/18 10:04 POC Chloride 102 (98-109) 04/29/18 10:04 Sodium 140 mmol/L (137-145) 04/30/18 05:46 Potassium 5.5 mmol/L (3.6-5.0) H 04/30/18 05:46 Chloride 102.1 mmol/L (98-107) 04/30/18 05:46 Carbon Dioxide 25 mmol/L (22-30) 04/30/18 05:46 Anion Gap 18 mmol/L 04/30/18 05:46 POC BUN 48 mg/dl (8-26) H 04/29/18 10:04 BUN 33 mg/dL (9-20) H 04/30/18 05:46 Creatinine 7.0 mg/dL (0.8-1.5) H 04/30/18 05:46 Estimated GFR 10 ml/min 04/30/18 05:46 BUN/Creatinine Ratio 5 % 04/30/18 05:46 Glucose 99 mg/dL (75-100) 04/30/18 05:46 POC Glucose 96 (70-105) 04/29/18 10:04 Calcium 8.3 mg/dL (8.4-10.2) L 04/30/18 05:46 Total Bilirubin 0.30 mg/dL (0.1-1.2) 04/29/18 14:05 AST 12 units/L (5-40) 04/29/18 14:05 ALT 10 units/L (7-56) 04/29/18 14:05 Alkaline Phosphatase 67 units/L (35-129) 04/29/18 14:05 Total Protein 7.2 g/dL (6.3-8.2) 04/29/18 14:05 Albumin 4.6 g/dL (3.9-5) 04/29/18 14:05 Albumin/Globulin Ratio 1.8 % 04/29/18 14:05 TSH 1.810 mlU/mL (0.270-4.200) 04/29/18 14:05
[2018-05-01 00:05] LABS: Calcium 8.2 mg/dL (8.4-10.2)
[2018-05-01] MEDS: SODIUM CHLORIDE FLUSH SYRINGE 10 ML IV SCH ×3 (00:09→23:00)
[2018-05-01] MEDS: HEPARIN SUB-Q SCH ×4 (00:09→22:59)
[2018-05-01 05:52] LABS: Calcium 8.3 mg/dL (8.4-10.2)
--- NOTE | 2018-05-01 12:22 | Progress Note ---
Assessment and Plan Impression: * ESRD * Hyperkalemia * htn * av access malfunction PLan: * hd TTHSAT * strict i/os * uf as tolerated * daily lytes * renal diet * avoid nephrotoxins * ok to dc home today, follow up with vascular as outpatient Subjective Date of service: 05/01/18 Principal diagnosis: hyperkalemia Interval history: resting in bed today Objective - Exam Narrative Exam: General appearance: well-developed, well-nourished, appears stated age EENT: PERRL, mucous membranes moist Neck: Present: neck supple, trachea midline. Absent: JVD/HJR, Masses Respiratory: Clear to Ascultation Heart: regular, normal heart rate, S1S2, no murmurs Gastrointestinal: Present: normal. Absent: tenderness, distended, masses, guarding Integumentary: no rash, warm and dry Neurologic: no focal deficit, alert and oriented x3, gait normal, strength 5/5 Musculoskeletal: Absent: deformities, joint swelling Psychiatric: mood/affect appropriate - Vital Signs Vital signs: Vital Signs - 12hr 05/01/18 05/01/18 05/01/18 03:15 03:40 08:16 Temperature 98.8 F 98.5 F Pulse Rate 67 74 62 Respiratory 16 20 Rate Blood Pressure 159/77 123/70 O2 Sat by Pulse 99 100 Oximetry 05/01/18 10:00 Temperature Pulse Rate 62 Respiratory Rate Blood Pressure O2 Sat by Pulse Oximetry - Lab 04/29/18 14:05 05/01/18 04:55 Most recent lab results Calcium 8.3 mg/dL (8.4-10.2) L 05/01/18 04:55 Medications & Allergies - Medications Allergies/Adverse Reactions: Allergies No Known Allergies Allergy (Unverified 04/27/18 18:09) Home Medications: Home Medications Medication Instructions Recorded Confirmed Last Taken Type No Known Home Medications [No 04/27/18 04/27/18 Unknown History Reported Home Medications] Active Medications: Generic Name Dose Route Start Last Admin Trade Name Freq PRN Reason Stop Dose Admin Acetaminophen 650 mg 04/29/18 15:39 Tylenol PO Q4H PRN Pain MILD(1-3)/Fever >100.5/MONACO Heparin Sodium (Porcine) 5,000 unit 04/29/18 22:00 05/01/18 06:47 Heparin SUB-Q 5,000 unit Q8HR LIS Administration Sodium Chloride 1,000 mls @ 42 mls/hr 04/29/18 06:00 04/30/18 08:52 Nacl 0.9% 1000 Ml IV 42 mls/hr DIRECT LIS Administration Sodium Chloride 100 mls @ 999 mls/hr 04/29/18 15:41 Nacl 0.9% IV CHANDAN PRN Hypotension Ondansetron HCl 4 mg 04/29/18 15:39 Zofran IV Q8H PRN Nausea And Vomiting Sodium Chloride 10 ml 04/29/18 22:00 05/01/18 10:27 Sodium Chloride Flush Syringe 10 Ml IV Not Given BID LIS Sodium Chloride 10 ml 04/29/18 15:39 Sodium Chloride Flush Syringe 10 Ml IV PRN PRN LINE FLUSH
--- NOTE | 2018-05-01 14:31 | Progress Note ---
Assessment and Plan Assessment and plan: 67M with pmh of ESRD who was in outpatient preop for declotting of avg, he was found to have elevated K prompting admission to hospital Diagnosis AVG malfunction hyperkalemia ESRD -vasc sx consult to declot avg -medically rx hyperkalemia in meantime -renal consult for continued HD Dvt ppx; chemical History Interval history: Review of systems Constitutional: No fevers, no malaise, no joint pains CVS: No chest pain, no orthopnea, no dyspnea on exertion, no pedal edema GI: No abdominal pain, no diarrhea, no vomiting, no constipation Respiratory: No shortness of breath, no wheezing, no coughing Hospitalist Physical - Physical exam Narrative exam: General.: Appears well, no distress, nontoxic HEENT: Moist mucous membranes, extraocular muscles intact, no lymphadenopathy Neck: supple Cardiac: S1-S2 heard Lungs: clear to auscultation bilaterally Abdomen: soft , nontender, nondistended, bowel sounds positive Extremities: no edema clubbing or cyanosis Skin: no rash or lesions Neurologic: no gross focal deficits Psych: calm, and cooperative - Constitutional Vitals: Temp Pulse Resp BP Pulse Ox 98.4 F 63 20 127/64 91 05/01/18 12:52 05/01/18 12:52 05/01/18 12:52 05/01/18 12:52 05/01/18 12:52 Results - Labs CBC & Chem 7: 04/29/18 14:05 05/03/18 06:17 Labs: Laboratory Last Values WBC 9.7 K/mm3 (4.5-11.0) 04/29/18 14:05 RBC 3.88 M/mm3 (3.65-5.03) 04/29/18 14:05 Hgb 12.6 gm/dl (11.8-15.2) 04/29/18 14:05 POC Hgb 11.2 (12-17) L 04/29/18 10:04 Hct 37.9 % (35.5-45.6) 04/29/18 14:05 POC Hct 33 (38-51) L 04/29/18 10:04 MCV 98 fl (84-94) H 04/29/18 14:05 MCH 33 pg (28-32) H 04/29/18 14:05 MCHC 33 % (32-34) 04/29/18 14:05 RDW 15.5 % (13.2-15.2) H 04/29/18 14:05 Plt Count 212 K/mm3 (140-440) 04/29/18 14:05 Lymph % (Auto) 22.0 % (13.4-35.0) 04/29/18 14:05 [place] % (Auto) 7.2 % (0.0-7.3) 04/29/18 14:05 Eos % (Auto) 2.9 % (0.0-4.3) 04/29/18 14:05 Baso % (Auto) 1.7 % (0.0-1.8) 04/29/18 14:05 Lymph # 2.1 K/mm3 (1.2-5.4) 04/29/18 14:05 [place] # 0.7 K/mm3 (0.0-0.8) 04/29/18 14:05 Eos # 0.3 K/mm3 (0.0-0.4) 04/29/18 14:05 Baso # 0.2 K/mm3 (0.0-0.1) H 04/29/18 14:05 Seg Neutrophils % 66.2 % (40.0-70.0) 04/29/18 14:05 Seg Neutrophils # 6.4 K/mm3 (1.8-7.7) 04/29/18 14:05 POC Sodium 137 mmol/L (138-146) L 04/29/18 10:04 POC Potassium 6.0 (3.5-4.9) H 04/29/18 10:04 POC Chloride 102 (98-109) 04/29/18 10:04 Sodium 136 mmol/L (137-145) L 05/01/18 04:55 Potassium 4.5 mmol/L (3.6-5.0) 05/01/18 04:55 Chloride 96.4 mmol/L (98-107) L 05/01/18 04:55 Carbon Dioxide 25 mmol/L (22-30) 05/01/18 04:55 Anion Gap 19 mmol/L 05/01/18 04:55 POC BUN 48 mg/dl (8-26) H 04/29/18 10:04 BUN 19 mg/dL (9-20) 05/01/18 04:55 Creatinine 5.6 mg/dL (0.8-1.5) H 05/01/18 04:55 Estimated GFR 12 ml/min 05/01/18 04:55 BUN/Creatinine Ratio 3 % 05/01/18 04:55 Glucose 97 mg/dL (75-100) 05/01/18 04:55 POC Glucose 96 (70-105) 04/29/18 10:04 Calcium 8.3 mg/dL (8.4-10.2) L 05/01/18 04:55 Total Bilirubin 0.30 mg/dL (0.1-1.2) 04/29/18 14:05 AST 12 units/L (5-40) 04/29/18 14:05 ALT 10 units/L (7-56) 04/29/18 14:05 Alkaline Phosphatase 67 units/L (35-129) 04/29/18 14:05 Total Protein 7.2 g/dL (6.3-8.2) 04/29/18 14:05 Albumin 4.6 g/dL (3.9-5) 04/29/18 14:05 Albumin/Globulin Ratio 1.8 % 04/29/18 14:05 TSH 1.810 mlU/mL (0.270-4.200) 04/29/18 14:05
[2018-05-02 04:05] LABS: Calcium 7.9 mg/dL (8.4-10.2)
[2018-05-02] MEDS: HEPARIN SUB-Q SCH ×3 (07:15→21:52)
[2018-05-02] MEDS: SODIUM CHLORIDE FLUSH SYRINGE 10 ML IV SCH ×2 (09:43→21:54)
--- NOTE | 2018-05-02 10:52 | Progress Note ---
Assessment and Plan Assessment and plan: 67M with pmh of ESRD who was in outpatient preop for declotting of avg, he was found to have elevated K prompting admission to hospital Diagnosis AVG malfunction hyperkalemia ESRD -medically rx hyperkalemia in meantime -renal consult for continued HD -for HD tomorrow and dc after --vasc sx consult appreciated, will fup with them as outpatient upon dc Dvt ppx; chemical History Interval history: Review of systems Constitutional: No fevers, no malaise, no joint pains CVS: No chest pain, no orthopnea, no dyspnea on exertion, no pedal edema GI: No abdominal pain, no diarrhea, no vomiting, no constipation Respiratory: No shortness of breath, no wheezing, no coughing Hospitalist Physical - Physical exam Narrative exam: General.: Appears well, no distress, nontoxic HEENT: Moist mucous membranes, extraocular muscles intact, no lymphadenopathy Neck: supple Cardiac: S1-S2 heard Lungs: clear to auscultation bilaterally Abdomen: soft , nontender, nondistended, bowel sounds positive Extremities: no edema clubbing or cyanosis Skin: no rash or lesions Neurologic: no gross focal deficits Psych: calm, and cooperative - Constitutional Vitals: Temp Pulse Resp BP Pulse Ox 98.4 F 61 18 134/63 100 05/02/18 09:16 05/02/18 09:16 05/02/18 09:16 05/02/18 09:16 05/02/18 09:16 Results - Labs CBC & Chem 7: 04/29/18 14:05 05/03/18 06:17 Labs: Laboratory Last Values WBC 9.7 K/mm3 (4.5-11.0) 04/29/18 14:05 RBC 3.88 M/mm3 (3.65-5.03) 04/29/18 14:05 Hgb 12.6 gm/dl (11.8-15.2) 04/29/18 14:05 POC Hgb 11.2 (12-17) L 04/29/18 10:04 Hct 37.9 % (35.5-45.6) 04/29/18 14:05 POC Hct 33 (38-51) L 04/29/18 10:04 MCV 98 fl (84-94) H 04/29/18 14:05 MCH 33 pg (28-32) H 04/29/18 14:05 MCHC 33 % (32-34) 04/29/18 14:05 RDW 15.5 % (13.2-15.2) H 04/29/18 14:05 Plt Count 212 K/mm3 (140-440) 04/29/18 14:05 Lymph % (Auto) 22.0 % (13.4-35.0) 04/29/18 14:05 [place] % (Auto) 7.2 % (0.0-7.3) 04/29/18 14:05 Eos % (Auto) 2.9 % (0.0-4.3) 04/29/18 14:05 Baso % (Auto) 1.7 % (0.0-1.8) 04/29/18 14:05 Lymph # 2.1 K/mm3 (1.2-5.4) 04/29/18 14:05 [place] # 0.7 K/mm3 (0.0-0.8) 04/29/18 14:05 Eos # 0.3 K/mm3 (0.0-0.4) 04/29/18 14:05 Baso # 0.2 K/mm3 (0.0-0.1) H 04/29/18 14:05 Seg Neutrophils % 66.2 % (40.0-70.0) 04/29/18 14:05 Seg Neutrophils # 6.4 K/mm3 (1.8-7.7) 04/29/18 14:05 POC Sodium 137 mmol/L (138-146) L 04/29/18 10:04 POC Potassium 6.0 (3.5-4.9) H 04/29/18 10:04 POC Chloride 102 (98-109) 04/29/18 10:04 Sodium 136 mmol/L (137-145) L 05/02/18 03:32 Potassium 5.2 mmol/L (3.6-5.0) H 05/02/18 03:32 Chloride 95.2 mmol/L (98-107) L 05/02/18 03:32 Carbon Dioxide 23 mmol/L (22-30) 05/02/18 03:32 Anion Gap 23 mmol/L 05/02/18 03:32 POC BUN 48 mg/dl (8-26) H 04/29/18 10:04 BUN 42 mg/dL (9-20) H 05/02/18 03:32 Creatinine 7.6 mg/dL (0.8-1.5) H 05/02/18 03:32 Estimated GFR 9 ml/min 05/02/18 03:32 BUN/Creatinine Ratio 6 % 05/02/18 03:32 Glucose 95 mg/dL (75-100) 05/02/18 03:32 POC Glucose 96 (70-105) 04/29/18 10:04 Calcium 7.9 mg/dL (8.4-10.2) L 05/02/18 03:32 Total Bilirubin 0.30 mg/dL (0.1-1.2) 04/29/18 14:05 AST 12 units/L (5-40) 04/29/18 14:05 ALT 10 units/L (7-56) 04/29/18 14:05 Alkaline Phosphatase 67 units/L (35-129) 04/29/18 14:05 Total Protein 7.2 g/dL (6.3-8.2) 04/29/18 14:05 Albumin 4.6 g/dL (3.9-5) 04/29/18 14:05 Albumin/Globulin Ratio 1.8 % 04/29/18 14:05 TSH 1.810 mlU/mL (0.270-4.200) 04/29/18 14:05 Active Medications - Current Medications Current Medications: Generic Name Dose Route Start Last Admin Trade Name Freq PRN Reason Stop Dose Admin Acetaminophen 650 mg 04/29/18 15:39 Tylenol PO Q4H PRN Pain MILD(1-3)/Fever >100.5/MONACO Heparin Sodium (Porcine) 5,000 unit 04/29/18 22:00 05/02/18 07:15 Heparin SUB-Q 5,000 unit Q8HR LIS Administration Sodium Chloride 1,000 mls @ 42 mls/hr 04/29/18 06:00 04/30/18 08:52 Nacl 0.9% 1000 Ml IV 42 mls/hr DIRECT LIS Administration Sodium Chloride 100 mls @ 999 mls/hr 04/29/18 15:41 Nacl 0.9% IV CHANDAN PRN Hypotension Ondansetron HCl 4 mg 04/29/18 15:39 Zofran IV Q8H PRN Nausea And Vomiting Sodium Chloride 10 ml 04/29/18 22:00 05/02/18 09:43 Sodium Chloride Flush Syringe 10 Ml IV 10 ml BID LIS Administration Sodium Chloride 10 ml 04/29/18 15:39 Sodium Chloride Flush Syringe 10 Ml IV PRN PRN LINE FLUSH
--- NOTE | 2018-05-02 11:47 | Progress Note ---
Assessment and Plan - Patient Problems (1) ESRD (end stage renal disease) on dialysis Current Visit: No Status: Acute Plan to address problem: End-stage renal disease on dialysis Access is right IJ PermCath Thrombosed AV graft will follow up with vascular surgery dialysis schedule Wednesday (2) Hyperkalemia Current Visit: No Status: Acute Plan to address problem: Hyperkalemia mild give Kayexalate 30 g 1 Plan for dialysis as scheduled tomorrow (3) Thrombosis of arteriovenous graft Current Visit: No Status: Acute Qualifiers: Encounter type: initial encounter Qualified Code(s): T82.868A - Thrombosis due to vascular prosthetic devices, implants and grafts, initial encounter Plan to address problem: Thrombosis of AV graft Case with vascular surgery Patient was scheduled for AV graft placement procedure was postponed due to hyperkalemia Vascular surgery we'll have the patient follow-up with them outpatient (4) Hyponatremia with excess extracellular fluid volume Current Visit: Yes Status: Acute Plan to address problem: Hyponatremia in renal failure secondary to excessive free water intake Plan for dialysis tomorrow Subjective Date of service: 04/27/18 Principal diagnosis: hyperkalemia Interval history: 67-year-old gentleman with medical history significant for hypertension, end-s tage renal disease on hemodialysis in [place] admitted for AV graft placement found to be hyperkalemic require dialysis He was seen today requesting to have this procedure done before he is discharged Having discussed with vascular surgery will have it done as an outpatient Currently has a right IJ PermCath Patient was seen having breakfast denies any shortness of breath orthopnea PND Objective - Vital Signs Vital signs: Vital Signs - 12hr 05/02/18 05/02/18 05/02/18 02:39 03:26 09:16 Temperature 98.6 F 98.4 F Pulse Rate 62 61 Respiratory 20 18 Rate Blood Pressure 144/66 134/63 O2 Sat by Pulse 99 100 Oximetry - General Appearance General appearance: well-developed, well-nourished, appears stated age EENT: ATNC Neck: no JVD, no thyromegaly, supple Respiratory: Present: Clear to Ascultation Cardiology: regular, S1S2 Gastrointestinal: normal, normoactive bowel sounds Integumentary: no rash, warm and dry Neurologic: alert and oriented x3, CN 3-12 intact Musculoskeletal: deferred Psychiatric: mood/affect appropriate - Lab 04/29/18 14:05 05/02/18 03:32 Most recent lab results Calcium 7.9 mg/dL (8.4-10.2) L 05/02/18 03:32 - Imaging Chest x-ray: image reviewed Medications & Allergies - Medications Allergies/Adverse Reactions: Allergies No Known Allergies Allergy (Unverified 04/27/18 18:09) Home Medications: Home Medications Medication Instructions Recorded Confirmed Last Taken Type No Known Home Medications [No 04/27/18 04/27/18 Unknown History Reported Home Medications] Active Medications: Generic Name Dose Route Start Last Admin Trade Name Freq PRN Reason Stop Dose Admin Acetaminophen 650 mg 04/29/18 15:39 Tylenol PO Q4H PRN Pain MILD(1-3)/Fever >100.5/MONACO Heparin Sodium (Porcine) 5,000 unit 04/29/18 22:00 05/02/18 07:15 Heparin SUB-Q 5,000 unit Q8HR LIS Administration Sodium Chloride 100 mls @ 999 mls/hr 04/29/18 15:41 Nacl 0.9% IV CHANDAN PRN Hypotension Ondansetron HCl 4 mg 04/29/18 15:39 Zofran IV Q8H PRN Nausea And Vomiting Sodium Chloride 10 ml 04/29/18 22:00 05/02/18 09:43 Sodium Chloride Flush Syringe 10 Ml IV 10 ml BID LIS Administration Sodium Chloride 10 ml 04/29/18 15:39 Sodium Chloride Flush Syringe 10 Ml IV PRN PRN LINE FLUSH
[2018-05-02] MEDS ORDERED: KIONEX PO ONE ×3 (12:00→15:00)
[2018-05-03] MEDS: HEPARIN SUB-Q SCH ×2 (05:11→15:37)
[2018-05-03 08:10] VITALS: BP 146/68
[2018-05-03 08:32] LABS: Calcium 7.6 mg/dL (8.4-10.2)
[2018-05-03] MEDS: SODIUM CHLORIDE FLUSH SYRINGE 10 ML IV SCH (09:30)
--- NOTE | 2018-05-03 13:15 | Discharge Summary ---
Providers - Providers Date of Admission: 04/29/18 11:21 Attending physician: MARIA ISABEL MARTÍNEZ MD 04/29/18 15:39 Consult to Physician [CONS] Routine Comment: called office/leelee Consulting Provider: JANNETH KNAPP Physician Instructions: Reason For Exam: esrd 04/29/18 15:44 Consult to Physician [CONS] Routine Comment: called office/leelee Consulting Provider: BRONSON BARNETT Physician Instructions: Reason For Exam: avg malfunction Primary care physician: PETROS OLIVA MD Hospitalization Condition: Good Hospital course: 67M with pmh of ESRD who was in outpatient preop for declotting of avg, he was found to have elevated K prompting admission to hospital -He was medically treated for hyperkalemia, received Kayexalate multiple times. He also received multiple sessions of dialysis. Hyperkalemia resolved, and the patient will follow up with vascular surgery as an outpatient for declotting of his AV graft. Diagnosis AVG malfunction hyperkalemia ESRD Disposition: TO HOME OR SELFCARE Time spent for discharge: 33 mins Core Measure Documentation - Palliative Care Palliative Care/ Comfort Measures: Not Applicable - Core Measures Any of the following diagnoses?: none Exam - Constitutional Vitals: Temp Pulse Resp BP Pulse Ox 98.6 F 59 L 18 146/68 100 05/03/18 07:49 05/03/18 07:49 05/03/18 07:49 05/03/18 07:49 05/03/18 10:00 General appearance: Present: no acute distress, well-nourished - EENT Eyes: Present: PERRL ENT: hearing intact, clear oral mucosa - Neck Neck: Present: supple, normal ROM - Respiratory Respiratory effort: normal Respiratory: bilateral: CTA - Cardiovascular Heart Sounds: Present: S1 & S2. Absent: rub, click - Extremities Extremities: pulses symmetrical, No edema Peripheral Pulses: within normal limits - Abdominal General gastrointestinal: Present: soft, non-tender, non-distended, normal bowel sounds Male genitourinary: Present: normal - Integumentary Integumentary: Present: clear, warm, dry - Musculoskeletal Musculoskeletal: gait normal, strength equal bilaterally - Psychiatric Psychiatric: appropriate mood/affect, intact judgment & insight - Neurologic Neurologic: CNII-XII intact, moves all extremities Plan Follow up with: OSEHOBO,EHI FARIDEH, MD [Primary Care Provider] - 7 Days
--- NOTE | 2018-05-03 13:46 | Progress Note ---
Assessment and Plan - Patient Problems (1) ESRD (end stage renal disease) on dialysis Current Visit: No Status: Acute Plan to address problem: End-stage renal disease on dialysis Access is right IJ PermCath Thrombosed AV graft will follow up with vascular surgery dialysis schedule Wednesday (2) Thrombosis of arteriovenous graft Current Visit: No Status: Acute Qualifiers: Encounter type: initial encounter Qualified Code(s): T82.868A - Thrombosis due to vascular prosthetic devices, implants and grafts, initial encounter Plan to address problem: Thrombosis of AV graft Case with vascular surgery Patient was scheduled for AV graft placement procedure was postponed due to hype rkalemia Vascular surgery we'll have the patient follow-up with them outpatient (3) Hyponatremia with excess extracellular fluid volume Current Visit: Yes Status: Acute Plan to address problem: Hyponatremia in renal failure secondary to excessive free water intake Dialysis today (4) Hypertension Current Visit: Yes Status: Acute Qualifiers: Hypertension type: essential hypertension Qualified Code(s): I10 - Essential (primary) hypertension Plan to address problem: Hypertension uncontrolled Optimize volume status with dialysis Subjective Principal diagnosis: hyperkalemia Interval history: 67-year-old gentleman with medical history significant for hypertension, end- stage renal disease on hemodialysis in [place] admitted for AV graft placement He was seen today I attest that I saw the patient on hemodialysis. Currently has a right IJ PermCath Discussed with patient, will need to follow up with vascular surgery on discharge Objective - Vital Signs Vital signs: Vital Signs - 12hr 05/03/18 05/03/18 05/03/18 01:54 07:49 10:00 Temperature 98.5 F 98.6 F Pulse Rate 61 59 L Respiratory 18 18 Rate Blood Pressure 148/75 146/68 O2 Sat by Pulse 98 100 100 Oximetry - General Appearance General appearance: well-developed, well-nourished EENT: ATNC, PERRL, mucous membranes moist Neck: no JVD, no thyromegaly, supple Respiratory: Present: Clear to Ascultation Cardiology: regular, S1S2 Gastrointestinal: normal, normoactive bowel sounds Integumentary: no rash Neurologic: alert and oriented x3 Musculoskeletal: deferred Psychiatric: mood/affect appropriate - Lab 04/29/18 14:05 05/03/18 06:17 Most recent lab results Calcium 7.6 mg/dL (8.4-10.2) L 05/03/18 06:17 Medications & Allergies - Medications Allergies/Adverse Reactions: Allergies No Known Allergies Allergy (Unverified 04/27/18 18:09) Home Medications: Home Medications Medication Instructions Recorded Confirmed Last Taken Type No Known Home Medications [No 04/27/18 04/27/18 Unknown History Reported Home Medications] Active Medications: Generic Name Dose Route Start Last Admin Trade Name Freq PRN Reason Stop Dose Admin Acetaminophen 650 mg 04/29/18 15:39 Tylenol PO Q4H PRN Pain MILD(1-3)/Fever >100.5/MONACO Heparin Sodium (Porcine) 5,000 unit 04/29/18 22:00 05/03/18 05:11 Heparin SUB-Q 5,000 unit Q8HR LIS Administration Sodium Chloride 100 mls @ 999 mls/hr 04/29/18 15:41 Nacl 0.9% IV CHANDAN PRN Hypotension Ondansetron HCl 4 mg 04/29/18 15:39 Zofran IV Q8H PRN Nausea And Vomiting Sodium Chloride 10 ml 04/29/18 22:00 05/03/18 09:30 Sodium Chloride Flush Syringe 10 Ml IV 10 ml BID LIS Administration Sodium Chloride 10 ml 04/29/18 15:39 Sodium Chloride Flush Syringe 10 Ml IV PRN PRN LINE FLUSH
[2018-05-03] MEDS ORDERED: NACL 0.9 (PRIMING MACHINE ONLY DIALYSIS) MC ONE (15:01)
== END 2018-05-03 16:25 | disposition home or self-care (01) | DRG 314 ==
LOC: OR 08:00 → 2B-ACE 11:21
PROVIDERS: ADMIT Internal Medicine; ATTEND Internal Medicine
PROC: 5A1D70Z Performance of Urinary Filtration, Intermittent, Less than 6 Hours Per Day (ICD-10-PCS; principal; 2018-04-29)
PROC: 5A1D70Z Performance of Urinary Filtration, Intermittent, Less than 6 Hours Per Day (ICD-10-PCS; 2018-04-30)
DX: T82.868A Thrombosis due to vascular prosthetic devices, implants and grafts, initial encounter (principal); N18.6 End stage renal disease; E87.1 Hypo-osmolality and hyponatremia; I12.0 Hypertensive chronic kidney disease with stage 5 chronic kidney disease or end stage renal disease; E87.5 Hyperkalemia; Z53.8 Procedure and treatment not carried out for other reasons; Z86.73 Personal history of transient ischemic attack (TIA), and cerebral infarction without residual deficits; Z82.49 Family history of ischemic heart disease and other diseases of the circulatory system; Y83.2 Surgical operation with anastomosis, bypass or graft as the cause of abnormal reaction of the patient, or of later complication, without mention of misadventure at the time of the procedure; Y92.89 Other specified places as the place of occurrence of the external cause
CPT/HCPCS: 36415; 80048; 80053; 82803; 82962; 84132; 84443; 85025; 93005; 93010; G0378; A4649; J0690; J1644; J2001; J2405; J2704; J3010; J7030; J7050

== ENCOUNTER 2018-05-27 09:08 | Day surgery (SDC) | payer MEDICARE ==
[~2018-05-27 09:08] MED LIST changes: +NACL 0.9% 1000 ML 1,000 ML IV SCH
[2018-05-27] MEDS ORDERED: DIPRIVAN 10 MG/ML IV ONE (09:54)
[2018-05-27] MEDS ORDERED: DILAUDID ONE (09:54)
[2018-05-27] MEDS ORDERED: XYLOCAINE MPF 2% ONE (09:54)
[2018-05-27 09:55] LABS: Hematocrit 35.8 % (35.5-45.6); Hemoglobin 12.2 gm/dl (11.8-15.2); Mean Corpuscular HGB Conc 34 % (32-34); Mean Corpuscular Volume 97 fl (84-94); Platelet Count 236 K/mm3 (140-440); Red Blood Count 3.69 M/mm3 (3.65-5.03); Red Cell Distribution Width 15.1 % (13.2-15.2)
[2018-05-27] MEDS ORDERED: SUBLIMAZE IV PRN (09:58)
[2018-05-27] MEDS ORDERED: MARCAINE-EPI 0.5%-1:200,000 INFILTRATI ONE ×2 (09:58→13:43)
--- NOTE | 2018-05-27 09:58 | Anesthesia Consultation ---
Anesthesia Consult and Med Hx Date of service: 05/27/18 - Airway Anesthetic Teeth Evaluation: Dentures ROM Head & Neck: Adequate Mental/Hyoid Distance: Adequate Mallampati Class: Class II Intubation Access Assessment: Probably Good - Pulmonary Exam CTA: Yes - Cardiac Exam Cardiac Exam: RRR - Pre-Operative Health Status ASA Pre-Surgery Classification: ASA4 Proposed Anesthetic Plan: General - Pulmonary Hx Smoking: No Hx Respiratory Symptoms: No - Cardiovascular System Hx Hypertension: Yes Hx Heart Attack/AMI: No Hx Percutaneous Transluminal Coronary Angioplasty (PTCA): No Hx Cardia Arrhythmia: No - Central Nervous System 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
--- NOTE | 2018-05-27 09:58 | Anesthesia Day of Surgery ---
Anesthesia Day of Surgery - Day of Surgery Patient Examined: Yes Patient H&P Reviewed: Yes Patient is NPO: Yes
[2018-05-27] MEDS ORDERED: HEPARIN 10,000 UNITS/10 ML ONE (09:59)
[2018-05-27] MEDS ORDERED: GELFOAM TP ONE ×2 (09:59→13:45)
[2018-05-27] MEDS ORDERED: NITROGLYCERIN SYRINGE 0 ML ONE (09:59)
[2018-05-27] MEDS ORDERED: NACL 0.9% 500 ML 500 ML ONE (09:59)
[2018-05-27] MEDS ORDERED: THROMBIN (BOVINE) TP ONE ×2 (10:01→13:45)
[2018-05-27] MEDS ORDERED: PROTAMINE SULFATE ONE (10:01)
[2018-05-27] MEDS ORDERED: PAPAVERINE ONE (10:01)
[2018-05-27] MEDS ORDERED: SODIUM BICARBONATE ONE (10:01)
[2018-05-27] MEDS ORDERED: XYLOCAINE 1%/ EPI 1:100,000 INFILTRATI ONE (10:02)
[2018-05-27] MEDS ORDERED: NACL P/F VIAL (10 ML) 10 ML ONE (10:02)
[2018-05-27 10:14] LABS: Calcium 8.5 mg/dL (8.4-10.2)
[2018-05-27] MEDS ORDERED: HumuLIN R IV ONE (10:23)
[2018-05-27] MEDS ORDERED: RIFADIN ONE (10:24)
[2018-05-27] MEDS ORDERED: D50W (25GM) Syringe IV ONE (10:25)
--- NOTE | 2018-05-27 11:52 | Short Stay Summary ---
<WYATT GENAOOPHE - Last Filed: 05/27/18 12:40> Short Stay Documentation Date of service: 05/27/18 Narrative H&P: This pt is a 68 yo male with ESRD who presents for elective LUE AVG creation. His initial K was 6.6. It was treated and the repeat value is 5.0 - History Past Medical History: dialysis, ESRD, hypertension, stroke Past Surgical History: Other (Previous LUE AV access, with subsequent fistulagrams and intervention; Previous HD catheter placement) Social history: no smoking (H/o tob use) - Allergies and Medications Current Medications: Allergies No Known Allergies Allergy (Unverified 05/19/18 15:27) Home Medications Medication Instructions Recorded Confirmed Last Taken Type Aspirin [Adult Aspirin] 81 mg PO 05/27/18 05/26/18 History Active Medications Fentanyl (Sublimaze) 50 mcg IV Q5MIN PRN PRN Reason: Pain , Severe (7-10) Stop: 05/27/18 23:59 Cefazolin Sodium (Ancef/Sterile Water 2 Gm/20 Ml) 2 gm in 20 mls @ 80 mls/hr IV PREOP NR; Protocol Stop: 05/27/18 23:59 Sodium Chloride (Nacl 0.9% 1000 Ml) 1,000 mls @ 42 mls/hr IV DIRECT LIS Last Admin: 05/27/18 09:40 Dose: 42 mls/hr Documented by: - Physical exam General appearance: no acute distress Integumentary: no rash HEENT: EOMI Lungs: Normal air movement Heart: Other (RRR) Extremities: no ischemia, abnormal (Thrombosed avg LUE, no erythema, wounds, or drainage appreciated) Neurological: Other (grossly intact) - Disposition Condition at discharge: Good Disposition: DC-01 TO HOME OR SELFCARE Short Stay Discharge Plan Follow up with: BRONSON BARNETT MD [Staff Physician] - 14 Days Prescriptions: HYDROcodone/APAP 5-325 [[place] 5/325] 1 each PO Q6HR PRN #30 tablet PRN Reason: Pain <BRONSON BARNETT - Last Filed: 05/27/18 14:39> Short Stay Documentation - Allergies and Medications Current Medications: Allergies No Known Allergies Allergy (Unverified 05/19/18 15:27) Home Medications Medication Instructions Recorded Confirmed Last Taken Type Aspirin [Adult Aspirin] 81 mg PO 05/27/18 05/26/18 History Active Medications Fentanyl (Sublimaze) 50 mcg IV Q5MIN PRN PRN Reason: Pain , Severe (7-10) Stop: 05/27/18 23:59 Cefazolin Sodium (Ancef/Sterile Water 2 Gm/20 Ml) 2 gm in 20 mls @ 80 mls/hr IV PREOP NR; Protocol Stop: 05/27/18 23:59 Sodium Chloride (Nacl 0.9% 1000 Ml) 1,000 mls @ 42 mls/hr IV DIRECT LIS Last Admin: 05/27/18 09:40 Dose: 42 mls/hr Documented by: - Brief post op/procedure progress note Date of procedure: 05/27/18 Pre-op diagnosis: ESRD Post-op diagnosis: same Procedure: Left upper arm brachial artery to axillary vein bridge graft using 6 mm bovine Anesthesia: GETA, local Findings: Good thrill and palpable left radial pulse at the end of the case Surgeon: BRONSON BARNETT Estimated blood loss: minimal Pathology: none Condition: stable Short Stay Discharge Plan Activity: advance as tolerated Diet: advance as tolerated Wound: per your surgeon's advice
[2018-05-27 12:13] LABS: Basophils % (Manual) 0 % (0.0-1.8); Eosinophils % (Manual) 0 % (0.0-4.3); Total Cells Counted 100
[2018-05-27 12:17] LABS: Anisocytosis 1+; Platelet Estimate Consistent w Auto
[2018-05-27] MEDS ORDERED: HEPARIN 10,000 UNITS/10 ML IV ONE (13:43)
[2018-05-27] MEDS ORDERED: NACL 0.9% 500 ML IRRIGATION ONE (13:44)
[2018-05-27] MEDS ORDERED: NACL P/F VIAL (10 ML) INFILTRATI ONE (13:46)
[2018-05-27] MEDS ORDERED: NACL 0.9% IR ONE (13:46)
[2018-05-27] MEDS ORDERED: RIFADIN IV ONE (13:47)
--- NOTE | 2018-05-27 14:37 | Operative Report ---
Operative Report Operative Report: Date of procedure: 05/27/2018 Pre-operative diagnosis: End-stage renal failure Post-operative diagnosis: Same Procedure name(s): Left upper extremity brachial artery to axillary vein bridge graft using 6 mm bovine graft Surgeon: Harshil Benitez MD Pocketbook Maker: None Anesthesia: Local MAC EBL: Less than 50 mL Operative indication: Patient is a 68-year-old man with end-stage renal failure and need for long-term hemodialysis access. Findings: Excellent thrill in the arteriovenous graft at the end of the procedure. And 2+ left radial pulse. Procedure: The patient was placed on the table in the supine position. The arm was prepped with ChloraPrep solution and draped in the usual sterile fashion. Under local anesthesia, an incision was made just above the elbow. Dissection was carried out to identify the brachial artery. The brachial artery was surrounded with Vesseloops proximally and distally. The brachial artery was approximately 7 mm in diameter. A second incision was made in the axilla and dissection was carried out to identify the axillary vein. This vein was also at least 10 mm in diameter. Vessel loops were placed proximally and distally. I should note that the wounds were infiltrated with half percent Marcaine and epinephrine prior to incision. The bovine graft was prepped according to the IFU. A tunnel was created in the upper arm between the 2 incisions using a Yeni-Wick tunneler. The graft was anastomosed to the axillary vein in an end to side fashion using running 6-0 Prolene. The arterial anastomosis was completed in an end-to-side fashion. The arteriotomy was approximate 5 mm in length. A Cyndy catheter was used to break the spasm in the brachial artery proximally and distally to the anastomosis. The anastomosis is completed and flow was started into the arteriovenous graft with the development of an immediate and excellent thrill along the body of the graft. The left radial pulse remained palpable. Meticulous hemostasis was obtained. Closure was done with 3-0 Vicryl on the subcutaneous tissues tissue and 4-0 PDS on the subcuticular tissue. Sterile dressings were applied. The patient tolerated the procedure well. There was an easily palpable left radial pulse at the end of the procedure. There was a good thrill in the graft at the end of the procedure. Sponge, needle, and instrument counts were reported as correct. The patient was taken from the operating room to the recovery room in stable condition.
[2018-05-27] MEDS ORDERED: ZOFRAN ONE (15:04)
[2018-05-27] MEDS ORDERED: ZOFRAN IV PRN (15:12)
[2018-05-27] MEDS ORDERED: PHENERGAN PO PRN (17:17)
[2018-05-27] MEDS ORDERED: PHENERGAN PR ONE ×2 (17:22→18:00)
[2018-05-27 18:36] VITALS: BP 153/73
== END 2018-05-27 18:35 | disposition home or self-care (01) ==
LOC: OR 09:08
PROVIDERS: ATTEND Surgery Vascular Surgery
DX: I12.0 Hypertensive chronic kidney disease with stage 5 chronic kidney disease or end stage renal disease (principal); E11.22 Type 2 diabetes mellitus with diabetic chronic kidney disease; N18.6 End stage renal disease; E11.39 Type 2 diabetes mellitus with other diabetic ophthalmic complication; H40.9 Unspecified glaucoma; Z83.3 Family history of diabetes mellitus; Z99.2 Dependence on renal dialysis; Z79.82 Long term (current) use of aspirin; Z79.899 Other long term (current) drug therapy; Z86.2 Personal history of diseases of the blood and blood-forming organs and certain disorders involving the immune mechanism; Z82.49 Family history of ischemic heart disease and other diseases of the circulatory system; Z86.73 Personal history of transient ischemic attack (TIA), and cerebral infarction without residual deficits
CPT/HCPCS: 36415; 36830; 80048; 82803; 82962; 85007; 85025; A4649; C1757; C1768; J0690; J1170; J1644; J2405; J2704; J3490; J7030; J7040; J1815; J2440; J2720